=== PATIENT | male | born 1975 | race Caucasian/White ===

== ENCOUNTER 2022-11-05 08:15 | Day surgery (SDC) | payer MEDICAID ==
[~2022-11-05] VITALS: Ht 184.2 cm; Wt 100.0 kg
[2022-11-05] MEDS ORDERED: MIDAZolam 1 MG/ML 5ML VIAL ONE (08:19)
[2022-11-05] MEDS ORDERED: fentaNYL/PF 50MCG/1 ML 2ML syringe ONE (08:19)
[2022-11-05] MEDS ORDERED: NO HOME MEDS (08:38)
[2022-11-05 09:04] VITALS: BP 132/81
[2022-11-05] MEDS ORDERED: diphenhydrAMINE 50 mg/ml inj ONE (09:20)
[2022-11-05 09:53] VITALS: BP 141/93
[2022-11-05 10:03] VITALS: BP 130/89
[2022-11-05 10:13] VITALS: BP 123/70
== END 2022-11-05 10:45 | disposition home or self-care (01) ==
LOC: GI LAB 08:15
PROVIDERS: ATTEND Internal Medicine Gastroenterology
DX: Z12.11 Encounter for screening for malignant neoplasm of colon (principal); K64.1 Second degree hemorrhoids; F12.90 Cannabis use, unspecified, uncomplicated; Z72.89 Other problems related to lifestyle
CPT/HCPCS: 45378; 46221; 99152; J1200; J2250; J3010; J7030; Z7512; 99153; A4620